=== PATIENT | female | born 1960 | race American Indian/Alaskan Native ===

== ENCOUNTER 2021-05-05 11:41 | Outpatient (CLI) | payer OTHER ==
[2021-05-05] MEDS ORDERED: ALBUTEROL 2.5 MG/3 ML NEBU IH ONE (13:05)
== END 2021-05-05 11:42 | disposition home or self-care (01) ==
LOC: PF 11:41
PROVIDERS: ATTEND Internal Medicine
DX: J45.909 Unspecified asthma, uncomplicated (principal); Z02.71 Encounter for disability determination
CPT/HCPCS: 94060; 94640; 94726; 94729; A9270